=== PATIENT | male | born 1975 | race Caucasian/White ===

== ENCOUNTER 2016-12-19 16:33 | Emergency (ER) | payer BC ==
[~2016-12-19] VITALS: Ht 188 cm; Wt 216.4 kg
[2016-12-19 16:35] VITALS: BP 195/94; PULSE 82; RESP 20; TEMP 97.4; O2SAT 96
--- NOTE | 2016-12-19 19:40 | PD ---
HPI Chief Complaint: Oral / Dental Pain or Problem Time Seen by Provider: 19:37 Travel History International Travel<30 days: No Contact w/Intl Traveler<30days: No Traveled to known affect area: No History of Present Illness HPI Patient comes in for possible dental infection. Patient states he's been having right lower jaw pain for about a week that got worse last night. Patient has a decaying tooth and he tried getting in with a dentist but was unable to and decided to come to the emergency department instead for possible antibiotics. Patient states he rinsed his mouth with whiskey last night in spite and out, which seemed to alleviate his symptoms however pain got worse today with eating and drinking. Pain radiates to his right lower jaw. Denies any fevers, nausea, vomiting, difficulty swallowing, headache, ear pain, dizziness, neck pain, chest pain, or shortness of breath. PFSH Past Medical History Narrative Medical Obesity, bilateral knee pain Social History Alcohol Use: No Tobacco Use: No Substance Use: No Allergies-Medications (Allergen,Severity, Reaction): Coded Allergies: No Known Allergies (Unverified , 12/19/16) Reported Meds & Prescriptions Reported Meds & Active Scripts Active Naprosyn (Naproxen) 500 Mg Tab 500 Mg PO Q12HR PRN Clindamycin (Clindamycin HCl) 150 Mg Cap 2 Cap PO Q6H 10 Days Review of Systems Except as stated in HPI: all other systems reviewed are Neg Physical Exam Narrative GENERAL: Well-developed, overly nourished, in no acute distress, and non-ill appearing. SKIN: Focused skin assessment warm and dry. HEAD: Atraumatic. Normocephalic. EYES: Pupils equal and round. EOMI. No scleral icterus. No injection or drainage. ENT: No nasal bleeding or discharge. Mucous membranes pink and moist. Poor dentition with no visible or palpable abscess. Uvula is midline. Floor the mouth, submandibular, and submental are all to palpation. NECK: Trachea midline. No lymphadenopathy. Supple. No nuclear rigidity. RESPIRATORY: No accessory muscle use. No respiratory distress. MUSCULOSKELETAL: No obvious deformities. No clubbing. No cyanosis. No edema. Full range of motion. NEUROLOGICAL: Awake and alert. No obvious cranial nerve deficits. Motor grossly within normal limits. Normal speech. PSYCHIATRIC: Appropriate mood and affect; insight and judgment normal. Data Data Last Documented VS Vital Signs Date Time Temp Pulse Resp B/P Pulse Ox O2 Delivery O2 Flow Rate FiO2 12/19/16 16:35 97.4 82 20 195/94 96 Room Air MDM Medical Decision Making Medical Screen Exam Complete: Yes Emergency Medical Condition: Yes Differential Diagnosis Dental abscess, dental infection, dentalgia, other Narrative Course The patient presented with dental pain. There is no fever. There is no significant facial swelling or evidence of cellulitis. There is poor dentition but no evidence of drainable abscess at this time. There is no evidence of significant deep or invading abscess at this time. The patient will be placed on antibiotics and pain medication. The patient was instructed to follow up with a dentist. The patient was given the dental referral sheet. Warnings were discussed with the patient regarding worsening of infection. The patient is to return if pain worsens, develops progressive swelling or facial redness or fever. The patient agrees with plan. The patient was found during their evaluation to have elevated blood pressures. Patient states he sees his doctor regularly and has never had high blood pressure reading while in his doctor's office. Patient reports he was just seen by his PCP 2 days ago his blood pressure was 120/80. The patient has no prior history of hypertension. The patient has no symptoms as well. The patient denied headache, changes in vision, nausea, vomiting, dizziness, weakness or loss of sensation. The patient denied and chest, back or abdominal pain. The patient also denied any shortness of breath, dyspnea on exertion, orthopnea or PND. The patient denies any edema to extremities. The patients blood pressures at discharge were at an acceptable level. I discussed with the patient that the standard of care is to not initiate antihypertensive medications at this time and for them to follow up with a primary care physician for continued outpatient evaluation, establish diagnosis of hypertension and potential initiation of blood pressure medications. Return warnings were given to the patient and the patient agreed with plan of care. Patient in no obvious distress upon re-evaluation. Patient was asked if they wanted to speak to my attending, which the patient did not wish to do at this time. Any questions/concerns in reference to patient diagnosis/condition discussed and clarified prior to patient's discharge. Reinforced sheer importance of close follow up with patient's primary physician or primary care clinic and/or dentist. Instructed patient to return to ED immediately, if symptoms return/worsen. Pt showed understanding of above instructions. Further instructions and recommendations were detailed in discharge paperwork. Pt ambulated without difficulty out of ED at discharge. Diagnosis Primary Impression: Infected dental carries Additional Impression: Elevated blood pressure reading Patient Instructions: Dental Abscess (ED), Dental Caries (DC), General Instructions, Hypertension (DC) Additional Instructions: Follow-up with your primary care physician and dentist as soon as possible. Follow-up with your primary care physician in 2-5 days for reevaluation of your elevated blood pressure noted here today. Rinse mouth with warm salt water gargles. Take all medication as prescribed. Return to the emergency department if symptoms get worse. Scripts Naproxen (Naprosyn)500 Mg Pgs564 Mg PO Q12HR PRN (PAIN SCALE 1 TO 10) #14 TAB Ref 0 Prov:Tamera Yung MD 12/19/16 Clindamycin 150 Mg Cap2 Cap PO Q6H 10 Days Ref 0 Prov:Tamera Yung MD 12/19/16 Disposition: 01 DISCHARGE HOME Condition: Stable Lasha Berman Dec 19, 2016 19:40
[2016-12-19] MEDS ORDERED: CLIN1CAP5 PO (19:41)
[2016-12-19] MEDS ORDERED: NAPR500 PO (19:41)
== END 2016-12-19 20:02 | disposition home or self-care (01) ==
LOC: NEPK 16:33
DX: K02.9 Dental caries, unspecified (principal); R03.0 Elevated blood-pressure reading, without diagnosis of hypertension; R68.84 Jaw pain; E66.9 Obesity, unspecified; Z79.899 Other long term (current) drug therapy
CPT/HCPCS: 99283